=== PATIENT | male | born 1960 | race Caucasian/White ===

== ENCOUNTER 2017-12-09 23:41 | Inpatient (IN) | payer SELFPAY ==
[~2017-12-09] VITALS: Ht 182.9 cm; Wt 91.5 kg
[2017-12-09 23:49] VITALS: BP 145/66; PULSE 111; RESP 20; O2SAT 99
[2017-12-10] VITALS (19 sets, daily range): BP systolic 130–163; BP diastolic 75–98; PULSE 91–107; RESP 14–24; TEMP 97–98.3; O2SAT 94–100
[2017-12-10] MEDS ORDERED: DIVA500T3 PO (00:12)
[2017-12-10] MEDS ORDERED: GABA300C5 PO (00:14)
[2017-12-10] MEDS ORDERED: JANU50TA8 PO (00:14)
[2017-12-10] MEDS ORDERED: SODIUM CHLOR 0.9% 1000 ML INJ 1,000 ML IV SCH (00:14)
[2017-12-10] MEDS ORDERED: VENL75TA PO (00:14)
[2017-12-10] MEDS ORDERED: ATOR40TA16 PO (00:14)
[2017-12-10] MEDS ORDERED: LISI40TA PO (00:14)
[2017-12-10] MEDS ORDERED: SODIUM CHLORIDE 0.9% FLUSH 10 ML FLUSH IV FLUSH PRN (00:15)
[2017-12-10] MEDS ORDERED: ONDANSETRON HCL 4 MG/2 ML VIAL IVP ONE (00:15)
[2017-12-10] MEDS ORDERED: METOCLOPRAMIDE HCL 10 MG/2 ML VIAL IV PUSH ONE (00:15)
--- NOTE | 2017-12-10 00:20 | PD ---
HPI Chief Complaint: Diabetic Time Seen by Provider: 00:05 Travel History International Travel<30 days: No Contact w/Intl Traveler<30days: No Traveled to known affect area: No History of Present Illness HPI Patient is a 57-year-old male diabetic presents emergency department for evaluation of abdominal discomfort nausea vomiting and inability to tolerate p.o. for the past 2-3 days. Patient states this happened to him once in the past and he was told he had ketosis. Denies any chest pain shortness of breath fevers cough or congestion. States he has been taking his medications as prescribed. States symptoms are severe, gradually worsening over the past 4 days, context as above. PFSH Past Medical History High Cholesterol: Yes Diabetes: Yes Patient Takes Glucophage: No (pt unsure) Diminished Hearing: No Hypertension: Yes Tetanus Vaccination: Unknown Influenza Vaccination: Yes Social History Alcohol Use: Yes (daily) Tobacco Use: No Substance Use: No Allergies-Medications (Allergen,Severity, Reaction): Coded Allergies: No Known Allergies (Unverified , 12/09/17) Reported Meds & Prescriptions Reported Meds & Active Scripts Active Reported Atorvastatin (Atorvastatin Calcium) 40 Mg Tab 40 Mg PO HS Lisinopril 40 Mg Tab 40 Mg PO DAILY Effexor (Venlafaxine HCl) 75 Mg Tab 75 Mg PO Q8H Gabapentin 300 Mg Cap 300 Mg PO TID Janumet (Sitagliptin-Metformin) 50-1,000 Mg Tab 1 Tab PO BID Divalproex ER (Divalproex Sodium) 500 Mg Tab 1,000 Mg PO DAILY Review of Systems Except as stated in HPI: all other systems reviewed are Neg Physical Exam Narrative GENERAL: Well-developed well-nourished, appears uncomfortable but nontoxic. SKIN: Focused skin assessment warm/dry. HEAD: Atraumatic. Normocephalic. EYES: Pupils equal and round. No scleral icterus. No injection or drainage. TMs clear bilaterally. Oropharynx clear moist ENT: No nasal bleeding or discharge. Mucous membranes pink and moist. NECK: Trachea midline. No JVD. CARDIOVASCULAR: Tachycardia with regular rhythm, no murmurs gallops or rubs. No murmur appreciated. 2+ bilateral equal pulses in all 4 extremities. RESPIRATORY: No accessory muscle use. Clear to auscultation. Breath sounds equal bilaterally. GASTROINTESTINAL: Abdomen soft, non-tender, nondistended. Hepatic and splenic margins not palpable. MUSCULOSKELETAL: No obvious deformities. No clubbing. No cyanosis. No edema. NEUROLOGICAL: Awake and alert. No obvious cranial nerve deficits. Motor grossly within normal limits. Normal speech. PSYCHIATRIC: Appropriate mood and affect; insight and judgment normal. Data Data Last Documented VS Vital Signs Date Time Temp Pulse Resp B/P (MAP) Pulse Ox O2 Delivery O2 Flow Rate FiO2 12/10/17 02:47 101 17 137/98 (111) 99 Room Air Orders Orders Complete Blood Count With Diff (12/10/17 00:14) Comprehensive Metabolic Panel (12/10/17 00:14) Lipase (12/10/17 00:14) Prothrombin Time / Inr (Pt) (12/10/17 00:14) Act Partial Throm Time (Ptt) (12/10/17 00:14) Urinalysis - C+S If Indicated (12/10/17 00:14) Iv Access Insert/Monitor (12/10/17 00:14) Ecg Monitoring (12/10/17 00:14) Oximetry (12/10/17 00:14) Ondansetron Inj (Zofran Inj) (12/10/17 00:15) Sodium Chlor 0.9% 1000 Ml Inj (Ns 1000 M (12/10/17 00:14) Sodium Chloride 0.9% Flush (Ns Flush) (12/10/17 00:15) Metoclopramide Inj (Reglan Inj) (12/10/17 00:15) Piano Case Maker / Telemetry ANN.Q8H (12/10/17 01:35) ^ Insert Iv (12/10/17 01:35) Diet Npo (12/10/17 Breakfast) Sodium Chlor 0.9% 1000 Ml Inj (Ns 1000 M (12/10/17 01:35) Dext 5%-Nacl 0.9% 1000 Ml Inj (D5w-Ns 10 (12/10/17 01:35) Insulin Regular (Iv Infusion) (Novolin R (12/10/17 01:45) Potassium Chlor 40 Meq Premix (Kcl 40 Me (12/10/17 01:45) Potassium Chlor 40 Meq Premix (Kcl 40 Me (12/10/17 01:45) Potassium Chlor 20 Meq Premix (Kcl 20 Me (12/10/17 01:45) Potassium Chlor 20 Meq Premix (Kcl 20 Me (12/10/17 01:45) Potassium Chlor 20 Meq Premix (Kcl 20 Me (12/10/17 01:45) Potassium Chlor 20 Meq Premix (Kcl 20 Me (12/10/17 01:45) Potassium Chlor 20 Meq Premix (Kcl 20 Me (12/10/17 01:45) Potassium Chlor 20 Meq Premix (Kcl 20 Me (12/10/17 01:45) Sodium Bicarbonate 8.4% Inj (Sodium Bica (12/10/17 01:45) Sodium Bicarbonate 8.4% Inj (Sodium Bica (12/10/17 01:45) Sodium Phosphate Inj (Sodium Phosphate I (12/10/17 01:45) Hemoglobin (Hgb) A1c (12/10/17 01:35) Basic Metabolic Panel (Bmp) (12/10/17 06:35) Basic Metabolic Panel (Bmp) (12/10/17 12:35) Basic Metabolic Panel (Bmp) (12/10/17 18:35) Basic Metabolic Panel (Bmp) (12/11/17 00:35) Magnesium (Mg) (12/10/17 06:35) Magnesium (Mg) (12/10/17 12:35) Magnesium (Mg) (12/10/17 18:35) Magnesium (Mg) (12/11/17 00:35) Phosphorus (Po4) (12/10/17 06:35) Phosphorus (Po4) (12/10/17 12:35) Phosphorus (Po4) (12/10/17 18:35) Phosphorus (Po4) (12/11/17 00:35) Beta Hydroxybutyrate (Acetone) (12/10/17 12:35) Beta Hydroxybutyrate (Acetone) (12/11/17 00:35) Blood Gas Venous (Vbg) (12/10/17 01:35) Sodium Chlor 0.9% 1000 Ml Inj (Ns 1000 M (12/10/17 01:45) Admit Order (Ed Use Only) (12/10/17 ) Labs Laboratory Tests Test 12/10/17 00:22 12/10/17 00:38 12/10/17 01:40 White Blood Count 13.6 TH/MM3 Red Blood Count 5.86 MIL/MM3 Hemoglobin 17.3 GM/DL Hematocrit 53.6 % Mean Corpuscular Volume 91.5 FL Mean Corpuscular Hemoglobin 29.5 PG Mean Corpuscular Hemoglobin Concent 32.3 % Red Cell Distribution Width 14.7 % Platelet Count 258 TH/MM3 Mean Platelet Volume 8.3 FL Neutrophils (%) (Auto) 80.0 % Lymphocytes (%) (Auto) 14.3 % Monocytes (%) (Auto) 5.3 % Eosinophils (%) (Auto) 0.3 % Basophils (%) (Auto) 0.1 % Neutrophils # (Auto) 10.9 TH/MM3 Lymphocytes # (Auto) 2.0 TH/MM3 Monocytes # (Auto) 0.7 TH/MM3 Eosinophils # (Auto) 0.0 TH/MM3 Basophils # (Auto) 0.0 TH/MM3 CBC Comment DIFF FINAL Differential Comment Prothrombin Time 10.0 SEC Prothromb Time International Ratio 1.0 RATIO Activated Partial Thromboplast Time 30.3 SEC Blood Urea Nitrogen 22 MG/DL Creatinine 1.59 MG/DL Random Glucose 441 MG/DL Total Protein 8.5 GM/DL Albumin 3.8 GM/DL Calcium Level 9.2 MG/DL Alkaline Phosphatase 69 U/L Aspartate Amino Transf (AST/SGOT) 31 U/L Alanine Aminotransferase (ALT/SGPT) 34 U/L Total Bilirubin 0.8 MG/DL Sodium Level 129 MEQ/L Potassium Level 5.4 MEQ/L Chloride Level 94 MEQ/L Carbon Dioxide Level 9.9 MEQ/L Anion Gap 25 MEQ/L Estimat Glomerular Filtration Rate 45 ML/MIN Lipase 197 U/L B-Hydroxybutyrate 9.37 MMOL/L Urine Color YELLOW Urine Turbidity CLEAR Urine pH 5.5 Urine Specific [place] 1.024 Urine Protein 30 mg/dL Urine Glucose (UA) 1000 mg/dL Urine Ketones 150 mg/dL Urine Occult Blood TRACE Urine Nitrite NEG Urine Bilirubin NEG Urine Urobilinogen 2.0 MG/DL Urine Leukocyte Esterase NEG Urine WBC 1 /hpf Urine Squamous Epithelial Cells <1 /hpf Urine Mucus FEW /lpf Microscopic Urinalysis Comment CULT NOT INDICATED Blood Gas Puncture Site BY RN FROM IV Blood Gas Patient Temperature 98.6 Venous Blood pH 7.12 Venous Blood Partial Pressure CO2 27 mmHg Venous Blood Partial Pressure O2 46 mmHg Venous Blood HCO3 8 mmol/L Venous Blood Oxygen Saturation 71 % Venous Blood Oxygen Content 16.8 Vol % Venous Blood Base Excess -19.1 mmol/L Oxygen Delivery Device ROOM AIR Blood Gas Inspired Oxygen 21 % MDM Medical Decision Making Medical Screen Exam Complete: Yes Emergency Medical Condition: Yes Differential Diagnosis DKA,Electrolyte abnormality, acute abdomen unlikely. Narrative Course At 0140 it was noted the patient's labs are consistent with severe DKA, an additional liter of fluid was hung for him and he will be started on protocol. The patient's VBG shows a pH is 7.1. After the 2 L normal saline were finished she was started on insulin drip and electrolyte replacement protocol. Discussed with Dr. Lobato for admission to the ICU. Discussed the results with the patient and he is agreeable as well. Hemodynamically stable. Critical Care Narrative Aggregate critical care time was 35 minutes. Time to perform other separately billable procedures was not included in the critical care time. My time did not include minutes spent treating any other patients simultaneously or on activities that did not directly contribute to the patient's treatment. The services I provided to this patient were to treat and/or prevent clinically significant deterioration that could result in: , disability, organ failure I provided critical care services requiring my management, as noted below: Chart data review, documentation time, medication orders and management, vital sign assessments/reviewing monitor data, ordering and reviewing lab tests, ordering and interpreting/reviewing x-rays and diagnostic studies, care of the patient and discussion of the patient with the admitting physicians. Diagnosis Primary Impression: DKA (diabetic ketoacidoses) Gabriel Gutierrez MD Dec 10, 2017 00:20
[2017-12-10 00:50] LABS: AUTOMATED NEUTROPHIL # 10.9 TH/MM3 (1.8-7.7); BASOPHIL % 0.1 % (0.0-2.0); EOSINOPHIL % 0.3 % (0.0-4.0); HEMATOCRIT 53.6 % (39.0-51.0); HEMOGLOBIN 17.3 GM/DL (13.0-17.0); LYMPH % 14.3 % (9.0-44.0); MEAN CELL VOLUME 91.5 FL (80.0-100.0); MEAN CORPUSCULAR HEMOGLOBIN 29.5 PG (27.0-34.0); MEAN CORPUSCULAR HGB CONC 32.3 % (32.0-36.0); MEAN PLATELET VOLUME 8.3 FL (7.0-11.0); MONO % 5.3 % (0.0-8.0); MONOCYTE # 0.7 TH/MM3 (0-0.9); PLATELET COUNT 258 TH/MM3 (150-450); RED BLOOD COUNT 5.86 MIL/MM3 (4.50-5.90); RED CELL DISTRIBUTION WIDTH 14.7 % (11.6-17.2); WHITE BLOOD COUNT 13.6 TH/MM3 (4.0-11.0)
[2017-12-10 00:55] LABS: BLOOD, URINE TRACE (NEG); GLUCOSE,URINE 1000 mg/dL (NEG); KETONE, URINE 150 mg/dL (NEG); MUCUS URINE FEW /lpf (OCC); NITRITE,URINE NEG (NEG); PH, URINE 5.5 (5.0-8.5); SQUAMOUS EPITHELIAL CELL URINE <1 /hpf (0-5); URINE COLOR YELLOW (YELLW/STRAW); URINE LEUKOCYTE ESTERASE NEG (NEG)
[2017-12-10 00:56] LABS: BILIRUBIN, URINE NEG (NEG)
[2017-12-10 01:33] LABS: ALBUMIN 3.8 GM/DL (3.4-5.0); ALKALINE PHOSPHATASE 69 U/L (45-117); ALT (GPT) 34 U/L (12-78); AST (GOT) 31 U/L (15-37); BICARBONATE 9.9 MEQ/L (21.0-32.0); BLOOD UREA NITROGEN 22 MG/DL (7-18); CALCIUM 9.2 MG/DL (8.5-10.1); CHLORIDE 94 MEQ/L (98-107); CREATININE 1.59 MG/DL (0.60-1.30); GLOMERULAR FILTRATION RATE 45 ML/MIN (>89); GLUCOSE,RANDOM 441 MG/DL (74-106); SODIUM (NA) 129 MEQ/L (136-145); TOTAL BILIRUBIN ADULT 0.8 MG/DL (0.2-1.0); TOTAL PROTEIN 8.5 GM/DL (6.4-8.2)
[2017-12-10] MEDS ORDERED: POTASSIUM CHLOR 40 MEQ PREMIX 100 ML IV PRN ×2 (01:45)
[2017-12-10] MEDS ORDERED: SODIUM BICARBONATE 8.4% SOLN 50 MEQ/50 ML VIAL IV PUSH PRN ×2 (01:45)
[2017-12-10] MEDS ORDERED: POTASSIUM CHLOR 20 MEQ PREMIX 100 ML IV PRN ×6 (01:45)
[2017-12-10] MEDS ORDERED: SODIUM PHOSPHATE INJ 15 MMOL in SODIUM CHLORIDE 0.9% INJ 100 ML IV PRN (01:45)
[2017-12-10] MEDS ORDERED: SODIUM CHLOR 0.9% 1000 ML INJ 1,000 ML IV ONE (01:45)
[2017-12-10] MEDS: INSULIN REGULAR (IV INFUSION) 100 UNITS in SODIUM CHLORIDE 0.9% INJ 99 ML IV PRN ×2 (02:14→16:11)
[2017-12-10] MEDS: SODIUM CHLOR 0.9% 1000 ML INJ 1,000 ML IV SCH ×6 (02:19→23:18)
[2017-12-10] MEDS ORDERED: NALOXONE HCL 0.4 MG/ML AMP IV PUSH PRN (03:00)
[2017-12-10] MEDS ORDERED: ONDANSETRON HCL 4 MG/2 ML VIAL IVP PRN (03:00)
[2017-12-10] MEDS ORDERED: CHLORHEXIDINE GLUCONATE 2 % 1 PACK (2 CLOTHS)(extra cloths) TOPICAL PRN (04:15)
[2017-12-10] MEDS ORDERED: FLUMAZENIL 0.5 MG/5 ML VIAL IV PUSH PRN (05:30)
[2017-12-10] MEDS ORDERED: LORazepam 1 MG TAB PO PRN (05:30)
[2017-12-10] MEDS ORDERED: LORazepam 2 MG/ML VIAL IV PUSH PRN ×4 (05:30)
[2017-12-10] MEDS ORDERED: LORazepam 2 MG TAB PO PRN (05:30)
--- NOTE | 2017-12-10 05:34 | HHI.HP ---
HPI Service [place] [facility] Primary Care Physician No Primary Care Physician Admission Diagnosis DKA Diagnoses: Travel History International Travel<30 Days: No Contact w/Intl Traveler <30 Da: No Traveled to Known Affected Are: No History of Present Illness 57-year-old male with a past medical history significant for hypertension, hyperlipidemia, neuropathy, diabetes mellitus and seizure disorder presents to the emergency department for evaluation of "feeling like ." The patient reports that for the past 4-5 days he has been experiencing severe nausea/ vomiting. He reports that he has not taken his insulin, Levemir 25 units twice a day, for approximately 5 days as he has been consuming large quantities of alcohol. He reports drinking between 5-10 drinks a fireball daily. The patient lives in [place], [place] and is in [facility] for work. VB.09/21/46/ 8. Blood glucose 441. Anion gap 25. Patient denies fever/chills. Denies diarrhea. No chest pain or shortness of breath. Review of Systems Except as stated in HPI: all other systems reviewed are Neg Past Family Social History Past Medical History Seizure disorder Hypertension Hyperlipidemia Diabetes mellitus Neuropathy Past Surgical History Discectomy Reported Medications Reported Meds & Active Scripts Active Reported Atorvastatin (Atorvastatin Calcium) 40 Mg Tab 40 Mg PO HS Lisinopril 40 Mg Tab 40 Mg PO DAILY Effexor (Venlafaxine HCl) 75 Mg Tab 75 Mg PO Q8H Gabapentin 300 Mg Cap 300 Mg PO TID Janumet (Sitagliptin-Metformin) 50-1,000 Mg Tab 1 Tab PO BID Divalproex ER (Divalproex Sodium) 500 Mg Tab 1,000 Mg PO DAILY Allergies: Coded Allergies: No Known Allergies (Unverified , 12/09/17) Family History Father with both diabetes mellitus and coronary artery disease Social History Drinks approximately 5-10 large drinks of hard liquor daily. Denies tobacco. Positive marijuana. Denies all other illicit drugs. Physical Exam Vital Signs Vital Signs Date Time Temp Pulse Resp B/P (MAP) Pulse Ox O2 Delivery O2 Flow Rate FiO2 12/10/17 04:15 97.7 103 19 130/76 (94) 99 3/17/18 04:07 12/10/17 03:00 103 17 144/78 (100) 96 Room Air 12/10/17 02:47 101 17 137/98 (111) 99 Room Air 12/10/17 00:18 100 Room Air 12/09/17 23:49 111 20 145/66 (92) 99 Physical Exam GENERAL: male lying in bed SKIN: No rashes, ecchymoses or lesions. Cool and dry. Callus with mild ulceration on the medial aspect of right foot. Cracked heel on the bottom of left foot. No active signs of infection. HEAD: Atraumatic. Normocephalic. No temporal or scalp tenderness. EYES: Pupils equal round and reactive. Extraocular motions intact. No scleral icterus. No injection or drainage. ENT: Nose without bleeding, purulent drainage or septal hematoma. Throat without erythema, tonsillar hypertrophy or exudate. Uvula midline. Airway patent. NECK: Trachea midline. No JVD or lymphadenopathy. Supple, nontender, no meningeal signs. CARDIOVASCULAR: Regular rate and rhythm without murmurs, gallops, or rubs. RESPIRATORY: Clear to auscultation. Breath sounds equal bilaterally. No wheezes , rales, or rhonchi. GASTROINTESTINAL: Abdomen soft, non-tender, nondistended. No hepato-splenomegaly , or palpable masses. No guarding. MUSCULOSKELETAL: Extremities without clubbing, cyanosis, or edema. No joint tenderness, effusion, or edema noted. No calf tenderness. NEUROLOGICAL: Awake and alert. Cranial nerves II through XII intact. Motor and sensory grossly within normal limits. Normal speech. Laboratory Laboratory Tests Test 12/10/17 00:22 12/10/17 00:38 12/10/17 01:40 White Blood Count 13.6 Red Blood Count 5.86 Hemoglobin 17.3 Hematocrit 53.6 Mean Corpuscular Volume 91.5 Mean Corpuscular Hemoglobin 29.5 Mean Corpuscular Hemoglobin Concent 32.3 Red Cell Distribution Width 14.7 Platelet Count 258 Mean Platelet Volume 8.3 Neutrophils (%) (Auto) 80.0 Lymphocytes (%) (Auto) 14.3 Monocytes (%) (Auto) 5.3 Eosinophils (%) (Auto) 0.3 Basophils (%) (Auto) 0.1 Neutrophils # (Auto) 10.9 Lymphocytes # (Auto) 2.0 Monocytes # (Auto) 0.7 Eosinophils # (Auto) 0.0 Basophils # (Auto) 0.0 CBC Comment DIFF FINAL Differential Comment Prothrombin Time 10.0 Prothromb Time International Ratio 1.0 Activated Partial Thromboplast Time 30.3 Blood Urea Nitrogen 22 Creatinine 1.59 Random Glucose 441 Total Protein 8.5 Albumin 3.8 Calcium Level 9.2 Alkaline Phosphatase 69 Aspartate Amino Transf (AST/SGOT) 31 Alanine Aminotransferase (ALT/SGPT) 34 Total Bilirubin 0.8 Sodium Level 129 Potassium Level 5.4 Chloride Level 94 Carbon Dioxide Level 9.9 Anion Gap 25 Estimat Glomerular Filtration Rate 45 Lipase 197 Urine Color YELLOW Urine Turbidity CLEAR Urine pH 5.5 Urine Specific [place] 1.024 Urine Protein 30 Urine Glucose (UA) 1000 Urine Ketones 150 Urine Occult Blood TRACE Urine Nitrite NEG Urine Bilirubin NEG Urine Urobilinogen 2.0 Urine Leukocyte Esterase NEG Urine WBC 1 Urine Squamous Epithelial Cells <1 Urine Mucus FEW Microscopic Urinalysis Comment CULT NOT INDICATED Blood Gas Puncture Site BY RN FROM IV Blood Gas Patient Temperature 98.6 Venous Blood pH 7.12 Venous Blood Partial Pressure CO2 27 Venous Blood Partial Pressure O2 46 Venous Blood HCO3 8 Venous Blood Oxygen Saturation 71 Venous Blood Oxygen Content 16.8 Venous Blood Base Excess -19.1 Oxygen Delivery Device ROOM AIR Blood Gas Inspired Oxygen 21 Result Diagram: 12/10/172112/10/1721 Caprini VTE Risk Assessment Caprini VTE Risk Assessment: No/Low Risk (score <= 1) Caprini Risk Assessment Model Point Value = 1 Point Value = 2 Point Value = 3 Point Value = 5 Age 41-60 Minor surgery BMI > 25 kg/m2 Swollen legs Varicose veins or History of unexplained or recurrent spontaneous Oral contraceptives or hormone replacement Sepsis (< 1 month) Serious lung disease, including pneumonia (< 1 month) Abnormal pulmonary function Acute myocardial infarction Congestive heart failure (< 1 month) History of inflammatory bowel disease Medical patient at bed rest Age 61-74 Arthroscopic surgery Major open surgery (> 45 min) Laparoscopic surgery (> 45 min) Malignancy Confined to bed (> 72 hours) Immobilizing plaster cast Central venous access Age >= 75 History of VTE Family history of VTE Factor V Leiden Prothrombin [id number] Lupus anticoagulant Anticardiolipin antibodies Elevated serum homocysteine Heparin-induced thrombocytopenia Other congenital or acquired thrombophilia Stroke (< 1 month) Elective arthroplasty Hip, pelvis, or leg fracture Acute spinal cord injury (< 1 month) Prophylaxis Regimen Total Risk Factor Score Risk Level Prophylaxis Regimen 0-1 Low Early ambulation 2 Moderate Order ONE of the following: *Sequential Compression Device (SCD) *Heparin 5000 units SQ BID 3-4 Higher Order ONE of the following medications: *Heparin 5000 units SQ TID *Enoxaparin/Lovenox 40 mg SQ daily (WT < 150 kg, CrCl > 30 mL/min) *Enoxaparin/Lovenox 30 mg SQ daily (WT < 150 kg, CrCl > 10-29 mL/min) *Enoxaparin/Lovenox 30 mg SQ BID (WT < 150 kg, CrCl > 30 mL/min) AND/OR *Sequential Compression Device (SCD) 5 or more Highest Order ONE of the following medications: *Heparin 5000 units SQ TID (Preferred with Epidurals) *Enoxaparin/Lovenox 40 mg SQ daily (WT < 150 kg, CrCl > 30 mL/min) *Enoxaparin/Lovenox 30 mg SQ daily (WT < 150 kg, CrCl > 10-29 mL/min) *Enoxaparin/Lovenox 30 mg SQ BID (WT < 150 kg, CrCl > 30 mL/min) AND *Sequential Compression Device (SCD) Assessment and Plan Assessment and Plan Assessment/plan: 1. DKA Labs as mentioned in history of present illness Beta hydroxybutyrate pending DKA protocol insulin drip NPO IV Fluids Wean drip per protocol Monitor and replete electrolytes Counseled patient has the importance of continuing his insulin and alcohol cessation 2. Hypertension/hyperlipidemia/seizure disorder/diabetic neuropathy Continue home medications 3. Alcohol abuse Thiamine/folate/multivitamin CIWA protocol 4. GERTRUDIS Cr 1.59, baseline unknown IV fluid hydration Monitor renal function FEN NPO Electrolytes: Monitor and aggressively replete, hyponatremia secondary to hyperglycemia NS at 250 cc/hr SCDs Physician Certification 2 Midnight Certification Type: Admission for Inpatient Services Order for Inpatient Services The services are ordered in accordance with Medicare regulations or non- Medicare payer requirements, as applicable. In the case of services not specified as inpatient-only, they are appropriately provided as inpatient services in accordance with the 2-midnight benchmark. Estimated LOS (days): 2 2 days is the estimated time the patient will need to remain in the hospital, assuming treatment plan goals are met and no additional complications. Post-Hospital Plan: Not yet determined Imelda Lobato MD Dec 10, 2017 05:34
[2017-12-10] MEDS: DEXT 5%-NACL 0.9% 1000 ML INJ 1,000 ML IV SCH ×4 (06:26→16:43)
[2017-12-10] MEDS ORDERED: NON-FORMULARY DRUG (Lisinopril 40 MG) PO SCH (09:00)
[2017-12-10] MEDS ORDERED: LEVEMIR SQ (10:01)
--- NOTE | 2017-12-10 10:11 | HHI.PR ---
Subjective Remarks Follow-up DKA. Patient is feeling better resolved symptoms. Patient was not using Levemir 25 units twice a day because he was drinking. Denies withdrawal symptoms no hallucinations. Patient has been counseled regarding alcohol use. Discussed with RN, to follow-up pending laboratories. Objective Vitals Vital Signs Date Time Temp Pulse Resp B/P (MAP) Pulse Ox O2 Delivery O2 Flow Rate FiO2 12/10/17 09:00 107 14 148/80 (102) 98 12/10/17 08:00 97.0 106 16 154/79 (104) 98 12/10/17 08:00 106 12/10/17 07:00 105 20 150/85 (106) 12/10/17 06:00 105 12/10/17 04:15 97.7 103 19 130/76 (94) 99 12/10/17 04:07 12/10/17 03:00 103 17 144/78 (100) 96 Room Air 12/10/17 02:47 101 17 137/98 (111) 99 Room Air 12/10/17 00:18 100 Room Air 12/09/17 23:49 111 20 145/66 (92) 99 I/O 12/09/17 12/09/17 12/09/17 12/10/17 12/10/17 12/10/17 07:00 15:00 23:00 07:00 15:00 23:00 Intake Total 3037.6 ml 0 ml Output Total 1100 ml 1100 ml Balance 1937.6 ml -1100 ml Intake Oral 0 ml 0 ml IV Total 3037.6 ml Output Urine Total 1100 ml 1100 ml Stool Total 0 ml 0 ml # Voids 1 # Bowel Movements 0 0 Result Diagram: 12/10/17 0022 12/10/17 0022 Objective Remarks GENERAL: male lying in bed SKIN: No rashes, ecchymoses or lesions. Cool and dry. Callus with mild ulceration on the medial aspect of right foot. Cracked heel on the bottom of left foot. No active signs of infection. CARDIOVASCULAR: Regular rate and rhythm without murmurs, gallops, or rubs. RESPIRATORY: Clear to auscultation. Breath sounds equal bilaterally. No wheezes , rales, or rhonchi. GASTROINTESTINAL: Abdomen soft, non-tender, nondistended. No guarding. MUSCULOSKELETAL: Extremities without clubbing, cyanosis, or edema. No joint tenderness, effusion, or edema noted. No calf tenderness. NEUROLOGICAL: Awake and alert. Cranial nerves II through XII intact. Motor and sensory grossly within normal limits. Normal speech. Procedures none A/P Problem List: (1) DKA (diabetic ketoacidoses) ICD Code: E13.10 - Other specified diabetes mellitus with ketoacidosis without coma Status: Acute Assessment and Plan 1. DKA. Clinically stable Labs as mentioned in history of present illness Repeat labs pending DKA protocol insulin drip Improved nausea and vomiting will start diabetic diet IV Fluids Wean drip per protocol Monitor and replete electrolytes Counseled patient has the importance of continuing his insulin and alcohol cessation 2. Hypertension/hyperlipidemia/seizure disorder/diabetic neuropathy Continue home medications 3. Alcohol abuse Thiamine/folate/multivitamin CIWA protocol 4. GERTRUDIS Cr 1.59, baseline unknown IV fluid hydration Monitor renal function, check CK 5. Leukocytosis likely reactive. Monitor for infection. Repeat CBC in the morning FEN Electrolytes: Monitor and aggressively replete, hyponatremia secondary to hyperglycemia NS at 250 cc/hr SCDs Discharge Planning Keep patient in ICU until off insulin drip needs hourly glucose checks Carlos Manuel Fernandez MD Dec 10, 2017 10:10
[2017-12-10] MEDS: THIAMINE HCL 100 MG TAB PO SCH (11:11)
[2017-12-10] MEDS: MULTIVITAMINS/MINERALS THERAPEUTIC TAB PO SCH (11:12)
[2017-12-10] MEDS: GABAPENTIN 300 MG CAP PO SCH ×3 (11:12→18:50)
[2017-12-10] MEDS: FOLIC ACID 1 MG TAB PO SCH (11:12)
[2017-12-10] MEDS: LISINOPRIL 20 MG TAB PO SCH (11:12)
[2017-12-10] MEDS: DIVALPROEX SODIUM E.R. 500 MG TAB PO SCH (11:12)
[2017-12-10] MEDS: VENLAFAXINE HCL XR 75 MG CAP PO SCH (11:12)
[2017-12-10 13:38] LABS: BICARBONATE 15.5 MEQ/L (21.0-32.0); CREATININE 1.15 MG/DL (0.60-1.30); MAGNESIUM 2.1 MG/DL (1.5-2.5); PHOSPHORUS 1.6 MG/DL (2.5-4.9)
[2017-12-10 14:03] LABS: HEMOGLOBIN A1C 12.7 % (4.3-6.0)
[2017-12-10 18:39] LABS: ALKALINE PHOSPHATASE 52 U/L (45-117); ALT (GPT) 26 U/L (12-78); AST (GOT) 16 U/L (15-37); BICARBONATE 18.2 MEQ/L (21.0-32.0); BLOOD UREA NITROGEN 17 MG/DL (7-18); CALCIUM 7.9 MG/DL (8.5-10.1); CHLORIDE 109 MEQ/L (98-107); CREATININE 1.34 MG/DL (0.60-1.30); GLOMERULAR FILTRATION RATE 55 ML/MIN (>89); GLUCOSE,RANDOM 209 MG/DL (74-106); MAGNESIUM 2.1 MG/DL (1.5-2.5); PHOSPHORUS 1.4 MG/DL (2.5-4.9); SODIUM (NA) 137 MEQ/L (136-145); TOTAL BILIRUBIN ADULT 0.6 MG/DL (0.2-1.0); TOTAL PROTEIN 6.9 GM/DL (6.4-8.2)
[2017-12-10] MEDS ORDERED: SODIUM PHOSPHATE INJ 15 MMOL in SODIUM CHLORIDE 0.9% INJ 150 ML IV ONE (20:15)
[2017-12-10] MEDS ORDERED: DC Insulin drip 2 hrs post basal insulin dose ONE (20:15)
[2017-12-10] MEDS ORDERED: DC previous DKA orders (HMC 1917) ONE (20:15)
[2017-12-10] MEDS ORDERED: DEXTROSE 50% IN WATER 50 ML VIAL(D50) IV PUSH PRN (20:15)
[2017-12-10] MEDS ORDERED: GLUCAGON 1 MG/ML VIAL OTHER PRN (20:15)
[2017-12-10] MEDS ORDERED: POTASSIUM CHLORIDE 20 MEQ CONTROLLED RELEASE TAB PO ONE (20:45)
[2017-12-10] MEDS ORDERED: ATORVASTATIN 40 MG TAB PO SCH (21:00)
[2017-12-10] MEDS: INSULIN ASPART SUPPLEMENTAL SCALE SQ SCH (21:00)
[2017-12-10] MEDS: INSULIN DETEMIR 100 UNITS/ML VIAL SQ SCH (21:13)
[2017-12-11] VITALS (12 sets, daily range): BP systolic 142–181; BP diastolic 78–94; PULSE 80–100; RESP 12–22; TEMP 98–98.6; O2SAT 95–100
[2017-12-11] MEDS ORDERED: CHLORHEXIDINE GLUCONATE 2 % 1 PACK (2 CLOTHS)(taper/protocol) TOPICAL SCH (04:00)
[2017-12-11] MEDS ORDERED: cloNIDine HCL 0.1 MG TAB PO PRN (04:45)
[2017-12-11 06:07] LABS: AUTOMATED NEUTROPHIL # 5.5 TH/MM3 (1.8-7.7); BASOPHIL % 0.2 % (0.0-2.0); EOSINOPHIL # 0.2 TH/MM3 (0-0.4); EOSINOPHIL % 2.5 % (0.0-4.0); HEMATOCRIT 42.4 % (39.0-51.0); HEMOGLOBIN 14.3 GM/DL (13.0-17.0); LYMPH % 19.9 % (9.0-44.0); LYMPHOCYTE # 1.6 TH/MM3 (1.0-4.8); MEAN CELL VOLUME 86.5 FL (80.0-100.0); MEAN CORPUSCULAR HEMOGLOBIN 29.1 PG (27.0-34.0); MEAN CORPUSCULAR HGB CONC 33.7 % (32.0-36.0); MEAN PLATELET VOLUME 7.7 FL (7.0-11.0); MONO % 8.6 % (0.0-8.0); MONOCYTE # 0.7 TH/MM3 (0-0.9); NEUT % 68.8 % (16.0-70.0); PLATELET COUNT 166 TH/MM3 (150-450); RED BLOOD COUNT 4.91 MIL/MM3 (4.50-5.90); RED CELL DISTRIBUTION WIDTH 14.1 % (11.6-17.2); WHITE BLOOD COUNT 7.9 TH/MM3 (4.0-11.0)
[2017-12-11 06:08] LABS: BICARBONATE 18.1 MEQ/L (21.0-32.0); CREATININE 0.96 MG/DL (0.60-1.30); PHOSPHORUS 1.8 MG/DL (2.5-4.9)
[2017-12-11] MEDS: INSULIN ASPART SUPPLEMENTAL SCALE SQ SCH ×2 (08:00→12:00)
[2017-12-11] MEDS: INSULIN DETEMIR 100 UNITS/ML VIAL SQ SCH (08:50)
[2017-12-11] MEDS: GABAPENTIN 300 MG CAP PO SCH ×2 (08:52→12:55)
[2017-12-11] MEDS: VENLAFAXINE HCL XR 75 MG CAP PO SCH (08:52)
[2017-12-11] MEDS: FOLIC ACID 1 MG TAB PO SCH (08:52)
[2017-12-11] MEDS: LISINOPRIL 20 MG TAB PO SCH (08:52)
[2017-12-11] MEDS: THIAMINE HCL 100 MG TAB PO SCH (08:52)
[2017-12-11] MEDS: DIVALPROEX SODIUM E.R. 500 MG TAB PO SCH (08:52)
[2017-12-11] MEDS: MULTIVITAMINS/MINERALS THERAPEUTIC TAB PO SCH (08:52)
[2017-12-11] MEDS: SODIUM CHLOR 0.9% 1000 ML INJ 1,000 ML IV SCH (08:57)
[2017-12-11] MEDS ORDERED: INFLUENZA VIRUS VACCINE (QUADRIVALENT) 0.5 ML SYR IM ONE (09:00)
[2017-12-11] MEDS ORDERED: PNEUMOCOCCAL POLYVALENT INJ 25 MCG/0.5 ML SYR IM ONE (09:00)
--- NOTE | 2017-12-11 09:52 | HHI.PR ---
Subjective Remarks Follow-up DKA. Patient is feeling much better no complaints. Diabetic education provided. Discussed with RN Objective Vitals Vital Signs Date Time Temp Pulse Resp B/P (MAP) Pulse Ox O2 Delivery O2 Flow Rate FiO2 12/11/17 08:00 81 12/11/17 08:00 98.6 81 18 168/88 (114) 100 12/11/17 07:00 80 19 147/89 (108) 12/11/17 06:00 99 12/11/17 04:00 85 12/11/17 04:00 98.0 85 22 181/89 (119) 95 12/11/17 02:00 86 12/11/17 00:00 87 12/11/17 00:00 98.0 87 17 153/79 (103) 99 12/10/17 22:00 91 12/10/17 20:00 98.3 98 19 144/75 (98) 12/10/17 20:00 98 12/10/17 18:00 99 12/10/17 16:00 98.0 103 24 144/79 (100) 98 12/10/17 16:00 103 12/10/17 15:38 94 12/10/17 15:00 104 17 147/79 (101) 12/10/17 14:00 104 12/10/17 14:00 104 20 162/77 (105) 99 12/10/17 13:00 103 17 163/82 (109) 99 12/10/17 12:00 102 12/10/17 12:00 97.3 102 16 160/82 (108) 99 12/10/17 11:00 104 17 157/83 (107) 99 12/10/17 10:00 102 17 143/80 (101) 99 12/10/17 10:00 102 I/O 12/10/17 12/10/17 12/10/1718 12/11/17 12/11/17 07:00 15:00 23:00 07:00 15:00 23:00 Intake Total 3037.6 ml 1000 ml 3349.7 ml 1394 ml Output Total 1100 ml 1100 ml 3550 ml 1400 ml Balance 1937.6 ml -100 ml -200.3 ml -6 ml Intake Oral 0 ml 0 ml 1460 ml 480 ml IV Total 3037.6 ml 1000 ml 1889.7 ml 914 ml Output Urine Total 1100 ml 1100 ml 3550 ml 1400 ml Stool Total 0 ml 0 ml # Voids 1 # Bowel Movements 0 0 0 0 Result Diagram: 12/11/17 0504 12/11/17 0504 Objective Remarks GENERAL: male lying in bed SKIN: No rashes, ecchymoses or lesions. Cool and dry. Callus with mild ulceration on the medial aspect of right foot. Cracked heel on the bottom of left foot. No active signs of infection. CARDIOVASCULAR: Regular rate and rhythm without murmurs, gallops, or rubs. RESPIRATORY: Clear to auscultation. Breath sounds equal bilaterally. No wheezes , rales, or rhonchi. GASTROINTESTINAL: Abdomen soft, non-tender, nondistended. No guarding. MUSCULOSKELETAL: Extremities without clubbing, cyanosis, or edema. No joint tenderness, effusion, or edema noted. No calf tenderness. NEUROLOGICAL: Awake and alert. Cranial nerves II through XII intact. Motor and sensory grossly within normal limits. Normal speech. Procedures none A/P Problem List: (1) DKA (diabetic ketoacidoses) ICD Code: E13.10 - Other specified diabetes mellitus with ketoacidosis without coma Status: Acute Assessment and Plan 1. DKA secondary to noncompliance. Resolved. Increase Levemir to 30 units twice a day and continue sliding scale. Diabetic education. Counseled patient regarding the importance of continuing his insulin and alcohol cessation 2. Hypertension/hyperlipidemia/seizure disorder/diabetic neuropathy. Continue home medications 3. Alcohol abuse. Counseled. Thiamine/folate/multivitamin. [facility] protocol 4. GERTRUDIS. Improved with IV hydration 5. Leukocytosis likely reactive. Improved monitor for infection. FEN Electrolytes: Monitor and aggressively replete, hyponatremia secondary to hyperglycemia NS at 250 cc/hr SCDs Discharge Planning Discharge patient to home Condition on discharge: Improved Regular Diet as tolerated Ad Helen activity no driving Rx written: Levemir, potassium phosphate and thiamine Follow-up with primary care physician Carlos Manuel Fernandez MD Dec 11, 2017 09:52
[2017-12-11] MEDS ORDERED: POTASSIUM PHOSPHATE MONOBASIC 500 MG TAB PO SCH (10:00)
[2017-12-11] MEDS ORDERED: LEVEMIR SQ (11:17)
[2017-12-11] MEDS ORDERED: THIA100 PO (11:17)
[2017-12-11] MEDS ORDERED: K-PHTAB PO (11:17)
--- NOTE | 2017-12-11 11:18 | HHI.DCPOC ---
Discharge Care Plan Diagnosis: (1) DKA (diabetic ketoacidoses) Your Health Problems Are: Difficulty with ADL Exercise Tolerance Goals to Promote Your Health * To prevent worsening of your condition and complications * To maintain your health at the optimal level Directions to Meet Your Goals Take your medications as prescribed Follow your dietary instruction Follow activity as directed Keep your appointments as scheduled Take your immunizations and boosters as scheduled If your symptoms worsen call your PCP, if no PCP go to Urgent Care Center or Emergency Room Smoking is Dangerous to Your Health. Avoid second hand smoke Call the 24-hour hour crisis hotline for domestic abuse at Carlos Manuel Fernandez MD Dec 11, 2017 11:18
[2017-12-11] MEDS ORDERED: INSULIN DETEMIR 100 UNITS/ML VIAL SQ SCH (21:00)
== END 2017-12-11 16:00 | disposition home or self-care (01) | DRG 638 ==
LOC: NEPE 23:41 → NEDA 12-10 02:52 → HIMW 12-10 03:55
PROVIDERS: ADMIT Internal Medicine; ATTEND Internal Medicine
DX: E11.10 Type 2 diabetes mellitus with ketoacidosis without coma (principal); N17.9 Acute kidney failure, unspecified; E87.1 Hypo-osmolality and hyponatremia; I10 Essential (primary) hypertension; E78.00 Pure hypercholesterolemia, unspecified; E78.5 Hyperlipidemia, unspecified; E11.40 Type 2 diabetes mellitus with diabetic neuropathy, unspecified; F10.10 Alcohol abuse, uncomplicated; D72.829 Elevated white blood cell count, unspecified; Z79.84 Long term (current) use of oral hypoglycemic drugs; Z91.19 Patient's noncompliance with other medical treatment and regimen; Z23 Encounter for immunization
CPT/HCPCS: 80048; 80053; 81001; 82010; 82805; 82948; 83036; 83690; 83735; 84100; 85025; 85610; 85730; 87641; 90686; 90732; 96361; 96374; 96375; 99291; J1815; J1817; J2405; J2765; J7030; J7042; Q2038